=== PATIENT | male | born 1980 ===

== ENCOUNTER 2024-01-28 08:54 | Outpatient (AMB) | payer OTHER, SELFPAY ==
--- NOTE | 2024-01-28 08:56 | MHC.OFFVIS ---
Vital Signs 01/28/24 09:01 Height 5 ft 9 in Weight 203 lb BMI 30.0 BP 142/86 H Blood Pressure Location Rt brachial Position Sitting Pulse 81 Intake Visit Reasons: Skin Lesion left wrist Intake Note: Patient is seen in office for evaluation and treatment of a skin lesion of the left wrist. Pt c/o: Onset several years, left wrist, reports no pain, tenderness or discomfort. [employer] Required: No Accompanied by: Self / Same As Patient Allergies No Known Allergies Allergy (Verified 01/28/24 09:02) Medication List - Last Reconciled 01/28/24 by Sammy Hooper MD No Known Home Meds HPI Comments Details: 43-year-old male patient presenting with a skin lesion located on the left wrist along the ulnar surface. This is been present for several years and has not changed significantly in size over this time. He occasionally tries to squeeze lesion but no discharge could be expressed. He occasionally will get some bleeding after squeezing the site. He denies any previous trauma or surgery to this location. [facility] Surgical History No pertinent past surgical history Social History Alcohol intake: never Patient Tobacco Use Status: Never used Tobacco Review of Systems Const All systems reviewed & are unremarkable except as noted in HPI and below Physical Exam Vital Signs: Last Vital Signs Pulse 81 01/28/24 09:01 BP 142/86 H 01/28/24 09:01 BMI result Body Mass Index 30.0 Const General: cooperative and no acute distress Nutritional Appearance: well nourished Orientation/consciousness: patient oriented x3 Limitations: no limitations HEENT Head: Yes normocephalic and Yes atraumatic Ears: hearing grossly normal bilaterally Resp Effort & Inspection: normal respiratory effort, no audible wheezes, no cough and no respiratory distress Cardio Jugular venous distension: no JVD GI Inspection: Yes normal to inspection Skin Other: Warm, dry, no rash Neuro General: patient oriented x3 Extrem Other: Left wrist skin lesion located just above the wrist along the medial surface measuring approximately 3 mm in diameter with a crusted overlying surface, suggestive of a fibroma. No pigmentation noted within the lesion. No ulceration or bleeding currently noted. General: Yes no clubbing, cyanosis or edema Hand/finger images: 1. Site of skin lesion left wrist, 3 mm diameter Assessment & Plan Assessment & Plan (1) Fibroma: Comment: Left wrist Code(s): D21.9 - Benign neoplasm of connective and other soft tissue, unspecified Category: Medical Plan 43-year-old male patient presenting with a skin lesion located on the left wrist which is been present for several years but occasionally bleeds after squeezing the lesion. On examination he has a 3 mm crusted lesion suggestive of a fibroma which potentially could be excised as an office based procedure under local anesthesia. I reviewed the procedure, risks and benefits of the procedure and he wishes to think about this. He will call our office should he wish to have the lesion removed. Coding Level of Care Code New Pt Level 4 (55120) Diagnoses Fibroma D21.9
[2024-01-28 09:01] VITALS: BP 142/86; PULSE 81
== END 2024-01-28 09:11 | disposition home or self-care (01) ==
PROVIDERS: PCP Internal Medicine; Referring Provider Internal Medicine; Visit Provider Surgery
DX: D21.9 Benign neoplasm of connective and other soft tissue, unspecified (principal)
CPT/HCPCS: 99204

== ENCOUNTER → 2024-01-28 08:54 | Outpatient (BNVA) | payer OTHER, SELFPAY | PROVIDERS: PCP Internal Medicine; Referring Provider Internal Medicine; Visit Provider Surgery ==